=== PATIENT | male | born 1980 | race Caucasian/White ===

== ENCOUNTER 2016-12-06 02:20 | Emergency (ER) | payer MEDICARE, MEDICAID ==
[2016-12-06 02:20] VITALS: BMI 53.1
[2016-12-06 02:28] VITALS: BP 128/81; PULSE 102; RESP 17; TEMP 98
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
--- NOTE | 2016-12-06 05:00 | US ---
EXAM: US Duplex Left Lower Extremity Veins CLINICAL HISTORY: 35 years old, male; Pain; Other: Lt calf; Additional info: Calf tender-severe TECHNIQUE: Real-time ultrasound scan of the veins of the left lower extremity with color Doppler flow, spectral waveform analysis and compression. COMPARISON: No relevant prior studies available. FINDINGS: Deep veins: Normal color and spectral Doppler flow. Normal compressibility. No deep vein thrombosis from common femoral to popliteal vein. Superficial veins: No thrombosis. Soft tissues: No popliteal cyst. Lymph nodes: 2.6 x 1.0 cm LEFT inguinal lymph node. IMPRESSION: 1. No evidence of DVT within LEFT lower extremity. 2. Incidental/non-acute findings are described above.
[2016-12-06 05:13] VITALS: O2SAT 100
== END 2016-12-06 05:13 | disposition home or self-care (01) ==
LOC: H.ER 02:20
DX: S86.812A Strain of other muscle(s) and tendon(s) at lower leg level, left leg, initial encounter (principal); X50.0XXA Overexertion from strenuous movement or load, initial encounter; Y93.55 Activity, bike riding; Y92.9 Unspecified place or not applicable; I10 Essential (primary) hypertension
CPT/HCPCS: 93971; 96374; 99283; J1885

== ENCOUNTER 2017-01-26 01:19 | Emergency (ER) | payer MEDICARE, MEDICAID ==
[2017-01-26 01:20] VITALS: BMI 53.1
[2017-01-26 01:44] VITALS: BP 140/90; PULSE 76; RESP 16; TEMP 98; O2SAT 100
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
[2017-01-26] MEDS ORDERED: Oxycodone/Acetaminophen 5/325 mg Tab PO STA (02:07)
[2017-01-26] MEDS ORDERED: Oxycodone/Acetaminophen 5/325 mg Tab ONE (02:16)
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
== END 2017-01-26 04:49 | disposition home or self-care (01) ==
LOC: H.ER 01:19
DX: T14.8 Other injury of unspecified body region (principal); Y04.2XXA Assault by strike against or bumped into by another person, initial encounter; Y93.9 Activity, unspecified

== ENCOUNTER 2017-04-28 08:29 | Emergency (ER) | payer MEDICARE, MEDICAID ==
[2017-04-28 08:29] VITALS: BMI 53.1
[2017-04-28 08:34] VITALS: BP 122/79; PULSE 80; RESP 18; O2SAT 98
[2017-04-28 08:51] VITALS: TEMP 98
--- NOTE | 2017-04-28 09:43 | ED PDOC ---
Upper Extremity Pain/Injury Time Seen by Provider: 04/28/17 08:56 Chief Complaint (Nursing): Abnormal Skin Integrity Chief Complaint (Provider): right hand pain History Per: Patient History/Exam Limitations: no limitations Onset/Duration Of Symptoms: Days (x 1) Additional Complaint(s): Eduardo Mcfarland is a 36 year old male, with a previous medical history of diabetes and hypertension, who presents to the ED with complaints of right hand pain which started yesterday after accidentally hitting his hand against a nail while fixing a wall at home. Patient denies any numbness or tingling and denies taking any pain medications. PMD: none provided Past Medical History Reviewed: Historical Data, Nursing Documentation, Vital Signs Vital Signs: Last Vital Signs Temp 98 F 04/28/17 08:47 Pulse 80 04/28/17 08:33 Resp 18 04/28/17 08:33 BP 122/79 04/28/17 08:33 Pulse Ox 98 04/28/17 08:47 - Medical History PMH: Anxiety, Bipolar Disorder, Diabetes, HTN, Hypercholesterolemia, Peripheral Edema, Sleep Apnea Denies: Asthma, Chronic Kidney Disease - Surgical History Surgical History: Tonsillectomy - Family History Family History: States: Unknown Family Hx, CAD - Immunization History Hx Tetanus Toxoid Vaccination: No - Home Medications Home Medications: Ambulatory Orders Medication Instructions Recorded Metformin Hydrochloride [Metformin] 1,000 mg PO BID 06/19/13 Naproxen [Naprosyn Tab] 1 tab PO Q8 PRN #10 tab 10/10/16 Cephalexin [cephalexin] 500 mg PO QID #28 cap 04/28/17 Naproxen [Naprosyn] 500 mg PO BID PRN #15 tablet 04/28/17 - Allergies Allergies/Adverse Reactions: Allergies Allergy/AdvReac Type Severity Reaction Status Date / Time No Known Allergies Allergy Verified 01/26/17 01:40 Review of Systems ROS Statement: Except As Marked, All Systems Reviewed And Found Negative Musculoskeletal: Positive for: Hand Pain (right ) Physical Exam - Reviewed Nursing Documentation Reviewed: Yes Vital Signs Reviewed: Yes - Physical Exam Appears: Positive for: Well, Non-toxic, No Acute Distress Extremity: Positive for: Normal ROM, Other (puncture wound to the right proximal mid hand. no erythema, fluctuance or drainage noted. ). Negative for: Deformity Neurologic/Psych: Positive for: Alert, Oriented - ECG O2 Sat by Pulse Oximetry: 98 (RA) Pulse Ox Interpretation: Normal Medical Decision Making Medical Decision Making: Initial Impression: hand pain Initial Plan: * keflex 500 mg PO * Motrin 600 mg PO * x-ray right hand * reevaluation --------- Scribe Attestation: Documented by Gretta Bonilla, acting as a scribe for Gretta Aguilera MD. Provider Scribe Attestation: All medical record entries made by the Scribe were at my direction and personally dictated by me. I have reviewed the chart and agree that the record accurately reflects my personal performance of the history, physical exam, medical decision making, and the department course for this patient. I have also personally directed, reviewed, and agree with the discharge instructions and disposition Disposition - Clinical Impression Clinical Impression: Puncture wound of hand - Disposition Referrals: [facility] [Outside] Disposition: Routine/Home Disposition Time: 11:29 Condition: STABLE Additional Instructions: RETURN TO ED IN 2 DAYS FOR WOUND CHECK. Prescriptions: Cephalexin [cephalexin] 500 mg PO QID #28 cap Naproxen [Naprosyn] 500 mg PO BID PRN #15 tablet PRN Reason: Pain, Moderate (4-7) Instructions: Puncture Wound (ED) Forms: [employer] (Cymraes)
--- NOTE | 2017-04-28 16:12 | RAD ---
PROCEDURE: Right Hand Radiographs. HISTORY: Puncture wound COMPARISON: None available. FINDINGS: BONES: No acute displaced fracture. JOINTS: No dislocation. SOFT TISSUES: Soft tissue swelling. No evidence of radiopaque foreign body. OTHER FINDINGS: None. IMPRESSION: Soft tissue swelling. No acute displaced fracture, dislocation, or significant joint effusion identified. If symptoms persist, or if there is continued clinical concern, x-ray follow-up in 7-10 days should be considered.
== END 2017-04-28 11:56 | disposition home or self-care (01) ==
LOC: H.ER 08:29
DX: S61.431A Puncture wound without foreign body of right hand, initial encounter (principal); W22.8XXA Striking against or struck by other objects, initial encounter; Y93.H9 Activity, other involving exterior property and land maintenance, building and construction

== ENCOUNTER 2017-10-26 00:24 | Emergency (ER) | payer MEDICAID, MEDICARE ==
[2017-10-26 00:25] VITALS: BMI 53.1
[2017-10-26] MEDS ORDERED: Tdap Vaccine 0.5 ml Vial (10-64 yrs) IM ONE ×2 (01:48→02:25)
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
[2017-10-26 02:49] VITALS: BP 140/84; PULSE 78; RESP 20; TEMP 98.1; O2SAT 99
== END 2017-10-26 02:59 | disposition home or self-care (01) ==
LOC: H.ER 00:24
DX: S61.012A Laceration without foreign body of left thumb without damage to nail, initial encounter (principal); W26.0XXA Contact with knife, initial encounter; Y92.89 Other specified places as the place of occurrence of the external cause

== ENCOUNTER 2018-01-06 23:31 | Emergency (ER) | payer MEDICARE, MEDICAID ==
[2018-01-06 23:32] VITALS: BMI 53.1
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
[2018-01-07 01:36] VITALS: BP 140/90; PULSE 82; RESP 18; TEMP 97.8; O2SAT 98
== END 2018-01-07 02:05 | disposition left against medical advice (07) ==
LOC: H.ER 23:31
DX: S09.90XA Unspecified injury of head, initial encounter (principal); S02.2XXA Fracture of nasal bones, initial encounter for closed fracture; Y04.0XXA Assault by unarmed brawl or fight, initial encounter; Y92.89 Other specified places as the place of occurrence of the external cause; E11.9 Type 2 diabetes mellitus without complications; E78.00 Pure hypercholesterolemia, unspecified; F31.9 Bipolar disorder, unspecified; F41.9 Anxiety disorder, unspecified; I10 Essential (primary) hypertension; Z79.84 Long term (current) use of oral hypoglycemic drugs; Z82.49 Family history of ischemic heart disease and other diseases of the circulatory system

== ENCOUNTER 2018-01-26 03:21 | Emergency (ER) | payer MEDICARE, MEDICAID ==
[2018-01-26 03:24] VITALS: BMI 34.9
[2018-01-26 04:49] LABS: BASO # 0.1 K/uL (0.0-0.2); BASO % 0.9 % (0.0-2.0); EOS # 0.1 K/uL (0.0-0.7); EOS % 1.3 % (0.0-4.0); LYMPH % 32.6 % (20.0-40.0); MEAN CELL VOLUME 85.7 fl (80.0-94.0); MEAN CORPUSCULAR HEMOGLOBIN 30.4 pg (27.0-31.0); MEAN CORPUSCULAR HGB CONC 35.5 g/dL (33.0-37.0); MEAN PLATELET VOLUME 8.5 fl (7.2-11.7); MONO # 0.7 K/uL (0.0-0.8); MONO % 8.1 % (0.0-10.0); NEUT # 5.2 K/uL (1.8-7.0); NEUT % 57.1 % (50.0-75.0); NRBC % 0.4 % (0.0-0.0); RBC 5.25 Mil/uL (4.40-5.90); RED CELL DISTRIBUTION WIDTH 12.8 % (11.5-14.5); WHITE BLOOD COUNT 9.1 K/uL (4.8-10.8)
[2018-01-26 05:04] LABS: CALCIUM 8.6 mg/dL (8.4-10.2); GFR AFRICAN-AMERICAN > 60; GFR NON-AFRICAN AMERICAN > 60
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
[2018-01-26 05:07] LABS: ALBUMIN 4.2 g/dL (3.5-5.0); ALT/SGPT 35 U/L (21-72); AST/SGOT 50 U/L (17-59); BLOOD UREA NITROGEN 20 mg/dl (9-20)
[2018-01-26 07:45] LABS: SQUAMOUS EPITHIAL < 1 /hpf (0-5); URINE BILIRUBIN NEGATIVE (NEGATIVE); URINE BLOOD NEGATIVE (NEGATIVE); URINE CLARITY CLEAR (Clear); URINE COLOR YELLOW (YELLOW); URINE GLUCOSE (UA) NEG (Normal); URINE LEUKOCYTE ESTERASE NEG Leu/uL (Negative); URINE PROTEIN NEGATIVE (NEGATIVE); URINE UROBILINOGEN 0.2-1.0 mg/dL (0.2-1.0)
[2018-01-26 08:25] VITALS: BP 147/63; PULSE 70; RESP 19; TEMP 98.4
--- NOTE | 2018-01-26 08:27 | ED PDOC ---
- Laboratory Results Result Diagrams: 01/26/18 04:45 01/26/18 04:45 - ECG O2 Sat by Pulse Oximetry: 96 Medical Decision Making Medical Decision Making: Pt wishes to leave AMA. Aware of risks including recurrent syncope, heart arrhythmia and Disposition - Clinical Impression Clinical Impression: Syncope - POA Present On Arrival: None - Disposition Referrals: Chandrika Chiu MD [Primary Care Provider] - Disposition: AGAINST MEDICAL ADVICE Disposition Time: 08:27 Condition: FAIR Additional Instructions: XI ROBERTSON, thank you for letting us take care of you today. Your provider was Ted Beverly MD and you were treated for KNEE PAIN. The emergency medical care you received today was directed at your acute symptoms. If you were prescribed any medication, please fill it and take as directed. It may take several days for your symptoms to resolve. Return to the Emergency Department if your symptoms worsen, do not improve, or if you have any other problems. Please contact your doctor or call one of the physicians/clinics you have been referred to that are listed on the Patient Visit Information form that is included in your discharge packet. Bring any paperwork you were given at discharge with you along with any medications you are taking to your follow up visit. Our treatment cannot replace ongoing medical care by a primary care provider outside of the emergency department. Thank you for allowing the [facility] team to be part of your care today. If you had an X-Ray or CT scan: A Radiologist will review the ED reading if any change in treatment is needed we will contact you. If you had a blood, urine, or wound culture: It will take several days for the results, if any change in treatment is needed we will contact you. If you had an STI test: It will take 48 hours for the results. Please call after 1 week if you have not heard back. Instructions: Syncope (Fainting) Forms: [employer] (Stateless)
--- NOTE | 2018-01-26 08:35 | CT ---
PROCEDURE: CT HEAD WITHOUT CONTRAST. HISTORY: headache COMPARISON: 01/07/2018 TECHNIQUE: Axial computed tomography images were obtained through the head/brain without intravenous contrast. Radiation dose: Total exam DLP = 802.65 mGy-cm. This CT exam was performed using one or more of the following dose reduction techniques: Automated exposure control, adjustment of the mA and/or kV according to patient size, and/or use of iterative reconstruction technique. FINDINGS: HEMORRHAGE: No intracranial hemorrhage. BRAIN: No mass effect or edema. No atrophy or chronic microvascular ischemic changes. VENTRICLES: Unremarkable. No hydrocephalus. CALVARIUM: Unremarkable. PARANASAL SINUSES: Unremarkable as visualized. No significant inflammatory changes. MASTOID AIR CELLS: Unremarkable as visualized. No inflammatory changes. OTHER FINDINGS: Previously identified left nasal fracture is again evident, minimally displaced. IMPRESSION: No intracranial mass, hemorrhage or evidence of acute infarct. Old left nasal fracture, minimally displaced. Preliminary interpretation of this examination was reported by [facility] at 6:13 a.m. on 01/26/2018. There is concurrence of this report with the preliminary interpretation.
--- NOTE | 2018-01-26 08:39 | CARD ---
APPROVED REPORT EKG Measurement Heart [id number] <Conclusion> Normal sinus rhythm Normal ECG
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
[2018-01-27 15:04] VITALS: O2SAT 98
== END 2018-01-26 08:52 | disposition left against medical advice (07) ==
LOC: H.ER 03:21
DX: R55 Syncope and collapse (principal); S80.211A Abrasion, right knee, initial encounter; W19.XXXA Unspecified fall, initial encounter; Y92.89 Other specified places as the place of occurrence of the external cause; E11.9 Type 2 diabetes mellitus without complications; E78.00 Pure hypercholesterolemia, unspecified; F31.9 Bipolar disorder, unspecified; F41.9 Anxiety disorder, unspecified; I10 Essential (primary) hypertension; Z79.84 Long term (current) use of oral hypoglycemic drugs; Z82.49 Family history of ischemic heart disease and other diseases of the circulatory system; I49.9 Cardiac arrhythmia, unspecified